=== PATIENT | male | born 1970 | race Caucasian/White ===

== ENCOUNTER 2023-09-25 07:34 | Outpatient (CLI) | payer OTHER, SELFPAY ==
--- NOTE | 2023-09-25 07:37 | CT_ITS ---
WS: [id number] CT HEAD NONCONTRAST HISTORY: ALTERED MENTAL STATUS TECHNIQUE: Contiguous axial imaging performed through the brain in 3.0 mm imaging. Bone and soft tiss ue windows. Sagittal and coronal reformats reviewed. All CT scans at [facility] use at least one of these dose optimization techniques: automated exposure control; mA and/or kV adjustment per pa tient size (includes targeted exams where dose is matched to clinical indication); or iterative recon struction. DLP: 1194.18 mGy.cm COMPARISON: None available. Moderate bifrontal lobe atrophy, greater than expected for a patient of this age. No prior infarct. M inimal small vessel ischemic type changes. No acute hemorrhage. No mass effect or midline shift. Ventricles: Normal size with no hydrocephalus. No inferior displacement the cerebellar tonsils. Paranasal sinuses: As visualized are clear. Mastoid air cells: Well pneumatized. Calvarium and scalp: Skull is intact with no soft tissue edema or swelling. CT/CT head wo con* [id number] IMPRESSION: 1. Moderate bifrontal lobe atrophy. Atrophy is more than expected for patient of this age. 2. No hemorrhage or mass effect. No prior infarct.
== END 2023-09-25 07:35 | disposition home or self-care (01) ==
LOC: RAD 07:34
PROVIDERS: PCP Internal Medicine; Visit Provider Family Medicine
DX: R41.82 Altered mental status, unspecified (principal); G31.9 Degenerative disease of nervous system, unspecified
CPT/HCPCS: 70450

== ENCOUNTER 2023-11-08 07:03 | Outpatient (CLI) | payer OTHER, SELFPAY ==
--- NOTE | 2023-11-08 07:16 | MR_ITS ---
WS: [id number] MRI HEAD WITH CONTRAST TECHNIQUE: Sagittal T1, T2 axial, T2 axial FLAIR, axial susceptibility weighted imaging, axial diffus ion weighted images, and coronal T2 images were obtained. Pre and post-T1 axial and post T1 coronal i mages. ADC and FSPGR images. CLINICAL INFORMATION: CEREBRAL ATROPHY COMPARISON: CT head 09/25/2023 FINDINGS: No evidence of restricted diffusion to suggest acute ischemia. Ventricular system and basal cisterns are patent. No suspicious intracranial signal abnormalities. Mild parenchymal volume loss more prominent in the frontal lobes. Normal posterior fossa. Normal vascular flow voids at the skull base. No extra-axial fluid collections. No evidence of mass or mass effect. Mild mucosal thickening in the paranasal sinuses. Mastoid air cells are well aerated. No hemosiderin on the susceptibility weighted images. Normal optic chiasm and pituitary infundibulum. Temporal lobes and hippocampal formations are normal in appearance. No abnormal gadolinium enhanceme nt. Normal dural venous sinuses. MR/MR head wo/w con [id number] IMPRESSION: 1. No evidence of restricted diffusion to suggest acute ischemia. 2. No suspicious intracranial signal abnormalities. Mild parenchymal volume lo ss worse in the frontal lobes. 3. No hemosiderin on the susceptibly weighted images. 4. No abnormal gadolinium enhancement. 5. No other suspicious findings.
[2023-11-08] MEDS: gadobenate dimeglumine 20 mL vial IV (07:42)
== END 2023-11-08 07:04 | disposition home or self-care (01) ==
LOC: RAD 07:05
PROVIDERS: PCP Internal Medicine; Visit Provider Internal Medicine
DX: G31.9 Degenerative disease of nervous system, unspecified (principal)
CPT/HCPCS: 70553